=== PATIENT | female | born 1960 | race Caucasian/White ===

== ENCOUNTER 2017-10-27 08:13 | Outpatient (CLI) | payer OTHER ==
--- NOTE | 2017-10-27 09:51 | MMO ---
BILATERAL DIGITAL SCREENING MAMMOGRAMS: HISTORY: This 56-year-old female presents for digital screening mammography. COMPARISON: 10/25/15. This patient's mammogram is interpreted with the assistance of computer-aided detection. FINDINGS: Scattered areas of fibroglandular density are noted bilaterally. Stable parenchymal density asymmetr y upper outer right breast. IMPRESSION: BI-RADS category 2, benign findings. Continued routine screening. BIRADS 2: Benign Finding(s) Routine annual screening mammography (for women over age 40) POS: [facility]
== END 2017-10-27 08:14 | disposition home or self-care (01) ==
LOC: SCSMAMMO 08:13
PROVIDERS: ATTEND Family Medicine
DX: Z12.31 Encounter for screening mammogram for malignant neoplasm of breast (principal)
CPT/HCPCS: 77067